=== PATIENT | male | born 1990 | race African-American/Black ===

== ENCOUNTER 2016-07-10 15:55 | Emergency (ER) | payer OTHER ==
[~2016-07-10] VITALS: Ht 167.6 cm; Wt 106.5 kg
[2016-07-10 16:04] VITALS: BP 146/83; PULSE 91; RESP 18; TEMP 98.1; O2SAT 96
[2016-07-10 16:35] VITALS: O2SAT 97
[2016-07-10 16:36] LABS: BASOPHIL # 0.2 TH/MM3 (0-0.2); EOSINOPHIL # 0.2 TH/MM3 (0-0.4); EOSINOPHIL % 2.2 % (0.0-4.0); HEMATOCRIT 46.7 % (39.0-51.0); LYMPH % 33.9 % (9.0-44.0); LYMPHOCYTE # 3.2 TH/MM3 (1.0-4.8); MEAN CELL VOLUME 89.5 FL (80.0-100.0); MEAN CORPUSCULAR HEMOGLOBIN 30.1 PG (27.0-34.0); MEAN CORPUSCULAR HGB CONC 33.7 % (32.0-36.0); MONO % 7.6 % (0.0-8.0); NEUT % 54.3 % (16.0-70.0); PLATELET COUNT 290 TH/MM3 (150-450); RED BLOOD COUNT 5.22 MIL/MM3 (4.50-5.90); RED CELL DISTRIBUTION WIDTH 13.4 % (11.6-17.2); WHITE BLOOD COUNT 9.3 TH/MM3 (4.0-11.0)
[2016-07-10 16:38] LABS: GLUCOSE,URINE NEG (NEG); KETONE, URINE NEG (NEG); NITRITE,URINE NEG (NEG)
[2016-07-10 16:43] LABS: BLOOD, URINE MOD (NEG)
[2016-07-10 16:45] LABS: POTASSIUM 3.8 MEQ/L (3.5-5.1)
[2016-07-10 16:49] LABS: MAGNESIUM 2.1 MG/DL (1.5-2.5)
[2016-07-10 16:52] LABS: METHOD OF COLLECTION CLEAN CATCH; URINE COLOR YELLOW (YELLW/STRAW)
[2016-07-10 16:53] LABS: COMMENT (UR) CULT NOT INDICATED; CULTURE IF INDICATED CULT NOT INDICATED; WBC, URINE 0-2 /hpf (0-5)
[2016-07-10] MEDS ORDERED: LANTUS2P SQ (16:57)
[2016-07-10] MEDS ORDERED: APIDINJ SQ (16:57)
[2016-07-10] MEDS ORDERED: DEPRESSION MED PO (16:57)
[2016-07-10] MEDS ORDERED: LISI10TA3 PO (16:57)
[2016-07-10 17:01] LABS: HEMO FLAGS DIFF FINAL
[2016-07-10] MEDS ORDERED: LEVO112T2 PO ×2 (17:01)
[2016-07-10] MEDS ORDERED: SODIUM CHLOR 0.9% 1000 ML INJ 1,000 ML IV ONE ×2 (17:15→18:00)
[2016-07-10 17:51] LABS: CKMB 8.8 NG/ML (0.5-3.6)
--- NOTE | 2016-07-10 18:29 | PD ---
HPI Chief Complaint: Abnormal Results Time Seen by Provider: 15:59 Travel History International Travel<30 days: No Contact w/Intl Traveler<30days: No Traveled to known affect area: No History of Present Illness HPI 25-year-old male presents with generalized ill feeling after walking a long distance today. He states that his sugars usually run in the 200s and when his sugar is in the 70s it feels low to him. He states he hasn't had a chance to get juice or anything yet. He denies any other concurrent complaints. Quality is lightheaded feeling. Severity is all over. He states he feels worse when he moves around. He denies other modifying factors. He states that he takes insulin and took it this morning like he usually does with Lantus and sliding scale insulin. He states that he also has sliding-scale insulin and Lantus that he uses at night. PFSH Past Medical History Depression: Yes Cardiac Catheterization: Yes (2012) Cardiovascular Problems: Yes (HTN) Diabetes: Yes (TYPE 1 ) Patient Takes Glucophage: No Diminished Hearing: No Hypertension: Yes Respiratory: Yes (ASTHMA) Renal Failure: Yes Thyroid Disease: Yes Tetanus Vaccination: < 5 Years Influenza Vaccination: Yes Past Surgical History Appendectomy: Yes Eye Surgery: Yes (ORBITAL DECOMPRESSION SURGERY BILATERAL) Social History Alcohol Use: Yes (SOCIALLY) Tobacco Use: No (FORMER) Substance Use: No Allergies-Medications (Allergen,Severity, Reaction): Coded Allergies: Atorvastatin (Verified Allergy, Unknown, 07/10/16) Lipitor (Verified Allergy, Unknown, 07/10/16) [place] (Verified Allergy, Unknown, 07/10/16) Reported Meds & Prescriptions Reported Meds & Active Scripts Active Reported Levothyroxine (Levothyroxine Sodium) 112 Mcg Tab 336 Mcg PO // Levothyroxine (Levothyroxine Sodium) 112 Mcg Tab 224 Mcg PO T/ [Depression Med] 1 Tab PO DAILY Lisinopril 10 Mg Tab 10 Mg PO DAILY Apidra Inj (Insulin Glulisine Inj) 1,000 Unit/10 Ml Vial 45 Units SQ ACHS Lantus Inj (Insulin Glargine) 1,000 Unit/10 Ml Vial 50 SQ BID Review of Systems Except as stated in HPI: all other systems reviewed are Neg Physical Exam Narrative GENERAL: Well-nourished, well-developed patient. SKIN: Warm and dry. HEAD: Normocephalic and atraumatic. EYES: No injection or drainage. ENT: No nasal drainage noted. NECK: Supple, trachea midline. CARDIOVASCULAR: Regular rate and rhythm RESPIRATORY: Breath sounds equal bilaterally. No accessory muscle use. GASTROINTESTINAL: Abdomen soft, non-tender, nondistended. EXTREMITIES: No edema. NEUROLOGICAL: Awake and alert. Motor and sensory grossly within normal limits. Normal speech. Data Data Last Documented VS Vital Signs Date Time Temp Pulse Resp B/P Pulse Ox O2 Delivery O2 Flow Rate FiO2 07/10/16 18:30 79 16 143/83 97 Room Air 07/10/16 16:04 98.1 Orders Magnesium (Mg) (07/10/16 15:59) Phosphorus (Po4) (07/10/16 15:59) Complete Blood Count With Diff (07/10/16 15:59) Basic Metabolic Panel (Bmp) (07/10/16 15:59) Urinalysis - C+S If Indicated (07/10/16 15:59) Iv Access Insert/Monitor (07/10/16 15:59) Ecg Monitoring (07/10/16 15:59) Oximetry (07/10/16 15:59) Blood Glucose (07/10/16 15:59) Sodium Chlor 0.9% 1000 Ml Inj (Ns 1000 M (07/10/16 17:15) Creatine Kinase (Cpk) (07/10/16 17:05) CKMB (07/10/16 16:25) CKMB% (07/10/16 16:25) Sodium Chlor 0.9% 1000 Ml Inj (Ns 1000 M (07/10/16 18:00) Creatine Kinase (Cpk) (07/10/16 17:54) Blood Urea Nitrogen (Bun) (07/10/16 17:54) Creatinine (07/10/16 18:10) Labs Laboratory Tests Test 07/10/16 07/10/16 07/10/16 16:25 16:30 18:10 White Blood Count 9.3 TH/MM3 Red Blood Count 5.22 MIL/MM3 Hemoglobin 15.7 GM/DL Hematocrit 46.7 % Mean Corpuscular Volume 89.5 FL Mean Corpuscular Hemoglobin 30.1 PG Mean Corpuscular Hemoglobin 33.7 % Concent Red Cell Distribution Width 13.4 % Platelet Count 290 TH/MM3 Mean Platelet Volume 8.8 FL Neutrophils (%) (Auto) 54.3 % Lymphocytes (%) (Auto) 33.9 % Monocytes (%) (Auto) 7.6 % Eosinophils (%) (Auto) 2.2 % Basophils (%) (Auto) 2.0 % Neutrophils # (Auto) 5.0 TH/MM3 Lymphocytes # (Auto) 3.2 TH/MM3 Monocytes # (Auto) 0.7 TH/MM3 Eosinophils # (Auto) 0.2 TH/MM3 Basophils # (Auto) 0.2 TH/MM3 CBC Comment DIFF FINAL Differential Comment Sodium Level 142 MEQ/L Potassium Level 3.8 MEQ/L Chloride Level 108 MEQ/L Carbon Dioxide Level 26.0 MEQ/L Anion Gap 8 MEQ/L Blood Urea Nitrogen 26 MG/DL 26 MG/DL Creatinine 1.70 MG/DL 1.50 MG/DL Estimat Glomerular Filtration 49 ML/MIN 69 ML/MIN Rate Random Glucose 78 MG/DL Calcium Level 9.5 MG/DL Phosphorus Level 2.5 MG/DL Magnesium Level 2.1 MG/DL Total Creatine Kinase 757 U/L 676 U/L Creatine Kinase MB 8.8 NG/ML Creatine Kinase MB % 1.2 % Urine Collection Type CLEAN CATCH Urine Color YELLOW Urine Turbidity CLEAR Urine pH 6.0 Urine Specific [place] 1.020 Urine Protein 300 OR GREATER mg/dL Urine Glucose (UA) NEG mg/dL Urine Ketones NEG mg/dL Urine Occult Blood MOD Urine Nitrite NEG Urine Bilirubin NEG Urine Leukocyte Esterase NEG Urine WBC 0-2 /hpf Microscopic Urinalysis Comment CULT NOT INDICATED Urine Collection Time 1630 MDM Medical Decision Making Medical Screen Exam Complete: Yes Emergency Medical Condition: Yes Medical Record Reviewed: Yes (past history confirmed, no prior labs) Interpretation(s) CBC & BMP Diagram 07/10/16 16:25 ua no acute Differential Diagnosis Electrolyte abnormality, rhabdomyolysis, UTI, renal failure, anemia..... Narrative Course Will check blood work, urinalysis and dose with IV fluids and reevaluate Given elevated creatinine with blood in urine without RBCs Will check ck CK with moderate elevation without prior labs will repeat creatinine and CK after IV fluid hydration here and if improving stable for discharge, CK likely elevated from exercise today with long walk, patient notes kidney issues but does not know his numbers Creatinine and CK have improved with IV fluid hydration. Patient has not had any dinner and gave himself insulin. He was given juice and simba crackers here so his sugar would not drop, Patient denies any new complaints and states that they are feeling better. Patient happy with care, all questions answered. Patient knows that follow up is incumbent on them and to return to the emergency room immediately if new or worsening symptoms develop. Patient given strict return precautions, vitals reviewed and are normal, agrees to further workup as an outpatient. Diagnosis Primary Impression: Weakness Additional Impressions: Renal insufficiency Rhabdomyolysis Qualified Code: M62.82 - Non-traumatic rhabdomyolysis Patient Instructions: General Instructions Additional Instructions: return as needed, follow with primary tommorrow, keep glucose log, keep hydrated Med/Other Pt SpecificInfo: No Change to Meds Disposition: 01 DISCHARGE HOME Condition: Stable Demetra Harrison MD Jul 10, 2016 18:29
[2016-07-10 18:30] VITALS: BP 143/83; PULSE 79; RESP 16; O2SAT 97
[2016-07-10 19:13] VITALS: BP 150/84; PULSE 79; RESP 16; O2SAT 8; O2SAT 98
== END 2016-07-10 19:34 | disposition home or self-care (01) ==
LOC: PHED 15:55
DX: M62.82 Rhabdomyolysis (principal); F32.9 Major depressive disorder, single episode, unspecified; E10.9 Type 1 diabetes mellitus without complications; I12.9 Hypertensive chronic kidney disease with stage 1 through stage 4 chronic kidney disease, or unspecified chronic kidney disease; N18.9 Chronic kidney disease, unspecified; Z79.4 Long term (current) use of insulin
CPT/HCPCS: 80048; 81001; 82550; 82552; 82565; 83735; 84100; 84520; 85025; 96360; 99284; J7030